=== PATIENT | male | born 1965 | race Caucasian/White ===

== ENCOUNTER 2023-04-16 01:31 | Emergency (ER) | payer BC ==
[2023-04-16] MEDS ORDERED: LORazepam 2 MG/ML SDV IVPUSH ONE ×2 (01:55→05:52)
[2023-04-16] MEDS ORDERED: Sodium Chloride 0.9% 10 ML Syringe FLUSH SCH (02:00)
[2023-04-16] MEDS ORDERED: Sodium Chloride 0.9% 10 ML Syringe FLUSH PRN (02:01)
[2023-04-16 02:20] LABS: BASOPHILS PERCENT AUTO 0.5 % (0.0-1.0); EOSINOPHILS PERCENT AUTO 0.3 % (1.0-3.0); HEMATOCRIT 29.8 % (40.0-54.0); HEMOGLOBIN 9.2 g/dL (14.0-18.0); LYMPHOCYTES PERCENT AUTO 12.1 % (20.5-50.1); MEAN CORPUSCULAR HEMOGLOBIN 28.7 pg (27.0-34.0); MEAN CORPUSCULAR HGB CONC 30.9 g/dL (33.0-35.0); MEAN CORPUSCULAR VOLUME 92.8 fL (80-100); MONOCYTES PERCENT AUTO 11.9 % (2-8); NEUTROPHILS PERCENT AUTO 75.2 % (42.2-75.2); PLATELET COUNT,PLT 200 10^3/uL (150-450); RED BLOOD CELL COUNT 3.21 10^6/uL (4.6-6.2); WHITE BLOOD CELL COUNT,WBC 6.5 10^3/uL (5.0-10.0)
[2023-04-16 02:24] LABS: CORONAVIRUS COVID-19 NAA NEGATIVE (NEGATIVE); INFLUENZA A NAA NEGATIVE (NEGATIVE); INFLUENZA B NAA NEGATIVE (NEGATIVE); RESPIRATORY SYNCYTIAL VIR NAA NEGATIVE (NEGATIVE)
[2023-04-16 02:27] LABS: APPEARANCE,URINE CLEAR (CLEAR); BILIRUBIN,URINE NEGATIVE (NEGATIVE); COLOR,URINE YELLOW (YELLOW); GLUCOSE,URINE NEGATIVE (NEGATIVE); KETONES,URINE NEGATIVE (NEGATIVE); LEUKOCYTE ESTERASE,URINE NEGATIVE (NEGATIVE); NITRITE,URINE NEGATIVE (NEGATIVE); OCCULT BLOOD,URINE NEGATIVE (NEGATIVE); PH,URINE 5.5 (5.0-9.0); PROTEIN,URINE NEGATIVE (NEGATIVE); UROBILINOGEN,URINE 0.2 mg/dL (0.2-1.0)
[2023-04-16 02:30] LABS: AMPHETAMINES,URINE NEGATIVE (NEGATIVE); BARBITURATES,URINE NEGATIVE (NEGATIVE); BENZODIAZEPINE,URINE NEGATIVE (NEGATIVE); MDMA (ECSTASY), URINE NEGATIVE (NEGATIVE); METHADONE,URINE NEGATIVE (NEGATIVE); METHAMPHETAMINES,URINE NEGATIVE (NEGATIVE); OPIATES,URINE NEGATIVE (NEGATIVE); OXYCODONE,URINE NEGATIVE (NEGATIVE); PHENCYCLIDINE,URINE NEGATIVE (NEGATIVE); TCA,URINE NEGATIVE (NEGATIVE)
[2023-04-16 02:39] LABS: ALANINE AMINOTRANSFERASE,ALT 46 U/L (16-63); ALBUMIN 3.3 g/dL (3.4-5.0); ALKALINE PHOSPHATASE 94 U/L (46-116); ANION GAP 17.7 mEq/L (7-13); ASPARTATE AMNIOTRANSFERASE,AST 88 U/L (15-37); BILIRUBIN TOTAL 0.9 mg/dL (0.2-1.0); BLOOD UREA NITROGEN,BUN 4 mg/dL (7-18); BUN/CREATININE RATIO 3.3 (No establ ref range); CALCIUM 8.4 mg/dL (8.5-10.1); CARBON DIOXIDE,CO2 26 mmol/L (21-32); CHLORIDE,CL 95 mmol/L (98-107); EST CRCL DRUG DOSING (CG) 64.92 mL/min; ETHANOL BLOOD MEDICAL 3 mg/dL (0); GLUCOSE RANDOM 103 mg/dL (70-99); LIPASE 23 U/L (16-77); MAGNESIUM 1.1 mg/dL (1.8-2.4); POTASSIUM,K 3.7 mmol/L (3.5-5.1); PROTEIN TOTAL,TP 7.1 g/dL (6.4-8.2); SODIUM,NA 135 mmol/L (136-145)
[2023-04-16 02:44] LABS: A/G RATIO 0.87; ESTIMATED GFR 70 mL/min (>=60)
[2023-04-16 02:45] LABS: C-REACTIVE PROTEIN < 0.50 ng/dL (<=0.50); LACTIC ACID 4.1 mmol/L (0.4-2.0)
[2023-04-16] MEDS ORDERED: Thiamine 100 MG in Sodium Chloride 0.9% 100 ML IV ONE (02:46)
[2023-04-16] MEDS ORDERED: Sodium Chloride 0.9% 1,000 ML IV ONE ×2 (02:46→04:11)
[2023-04-16] MEDS ORDERED: Magnesium Sulfate/Water 2 GM in Premix Bag 1 BAG IV ONE ×2 (02:47→03:00)
[2023-04-16 05:21] VITALS: BP 165/97; PULSE 85
[2023-04-16] MEDS ORDERED: LORazepam 1 MG Tab PO ONE (06:03)
== END 2023-04-16 06:11 | disposition home or self-care (01) ==
LOC: DL.ED 01:31
DX: R11.2 Nausea with vomiting, unspecified (principal); M54.42 Lumbago with sciatica, left side; F10.930 Alcohol use, unspecified with withdrawal, uncomplicated; D64.9 Anemia, unspecified; E83.42 Hypomagnesemia; R74.02 Elevation of levels of lactic acid dehydrogenase [LDH]; I10 Essential (primary) hypertension; F17.210 Nicotine dependence, cigarettes, uncomplicated; Z79.899 Other long term (current) drug therapy; Z20.822 Contact with and (suspected) exposure to COVID-19
CPT/HCPCS: 0241U; 36415; 80053; 80305-QW; 80307; 81003; 82140; 83605; 83690; 83735; 85025; 86140; 96361; 96365; 96367; 96375; 99284; 99284-25; A9270-GY; J2060; J3411; J3475; J3490; J7030

== ENCOUNTER 2023-05-08 09:37 | Emergency (ER) | payer BC ==
[2023-05-08 09:43] VITALS: BP 122/71; PULSE 116
[2023-05-08] MEDS ORDERED: Diazepam 5 MG Tab PO ONE (09:52)
== END 2023-05-08 10:45 | disposition swing bed (61) ==
LOC: DL.ED 09:37
DX: G56.22 Lesion of ulnar nerve, left upper limb (principal); R20.2 Paresthesia of skin; F17.210 Nicotine dependence, cigarettes, uncomplicated; I10 Essential (primary) hypertension; E78.00 Pure hypercholesterolemia, unspecified; Z79.899 Other long term (current) drug therapy
CPT/HCPCS: 82947; 93005; 93010; 99284; A9270-GY

== ENCOUNTER 2024-06-05 11:05 | Inpatient (IN) | payer BC ==
[2024-06-05] MEDS ORDERED: Sodium Chloride 0.9% 10 ML Syringe FLUSH PRN (11:20)
[2024-06-05 11:33] LABS: BASOPHILS PERCENT AUTO 0.1 % (0.0-1.0); EOSINOPHILS PERCENT AUTO 0.4 % (1.0-3.0); HEMATOCRIT 32.5 % (40.0-54.0); HEMOGLOBIN 11.8 g/dL (14.0-18.0); LYMPHOCYTES PERCENT AUTO 12.4 % (20.5-50.1); MEAN CORPUSCULAR HEMOGLOBIN 38.4 pg (27.0-34.0); MEAN CORPUSCULAR HGB CONC 36.3 g/dL (33.0-35.0); MEAN CORPUSCULAR VOLUME 105.9 fL (80-100); MONOCYTES PERCENT AUTO 14.8 % (2-8); NEUTROPHILS PERCENT AUTO 72.3 % (42.2-75.2); PLATELET COUNT,PLT 165 10^3/uL (150-450); RED BLOOD CELL COUNT 3.07 10^6/uL (4.6-6.2); WHITE BLOOD CELL COUNT,WBC 6.7 10^3/uL (5.0-10.0)
[2024-06-05] MEDS: MVI, Adult with Vitamin K 10 ML, Folic Acid 1 MG, Thiamine 100 MG in Lactated Ringers 1... IV ONE (11:39)
[2024-06-05 11:49] LABS: INR 1.1 (0.9-1.2); PROTHROMBIN TIME 11.6 SEC (9.0-12.0)
[2024-06-05 12:04] LABS: ALANINE AMINOTRANSFERASE,ALT 65 U/L (16-63); ALBUMIN 2.8 g/dL (3.4-5.0); ALKALINE PHOSPHATASE 123 U/L (46-116); ASPARTATE AMNIOTRANSFERASE,AST 98 U/L (15-37); BILIRUBIN TOTAL 1.5 mg/dL (0.2-1.0); BLOOD UREA NITROGEN,BUN 4 mg/dL (7-18); BUN/CREATININE RATIO 3.6 (No establ ref range); C-REACTIVE PROTEIN 0.67 ng/dL (<=0.50); CALCIUM 8.3 mg/dL (8.5-10.1); CARBON DIOXIDE,CO2 27 mmol/L (21-32); ETHANOL BLOOD MEDICAL 129 mg/dL (0); GLUCOSE RANDOM 118 mg/dL (70-99); MAGNESIUM 1.5 mg/dL (1.8-2.4); POTASSIUM,K 3.9 mmol/L (3.5-5.1); PROTEIN TOTAL,TP 6.1 g/dL (6.4-8.2); TSH ULTRASENSITIVE 3.97 uIU/mL (0.36-3.74)
[2024-06-05 12:10] LABS: ANION GAP 13.9 mEq/L (7-13); CHLORIDE,CL 84 mmol/L (98-107); SODIUM,NA 121 mmol/L (136-145)
[2024-06-05 12:12] LABS: A/G RATIO 0.85; ESTIMATED GFR 77 mL/min (>=60); LACTIC ACID 2.7 mmol/L (0.4-2.0)
[2024-06-05] MEDS: Iopamidol 612 MG/ML 100 ML Bottle IVPUSH ONE (12:15)
[2024-06-05] MEDS: Sodium Chloride 0.9% 1,000 ML IV ONE (13:14)
[2024-06-05] MEDS: Magnesium Sulf/Wat 2 GM/50 mL 2 GM in Premix Bag 1 BAG IV ONE (13:14)
[2024-06-05] MEDS: LORazepam 2 MG/ML SDV IVPUSH ONE (13:34)
[2024-06-05] MEDS: Ondansetron 4 MG/2 ML SDV IVPUSH ONE (13:34)
[2024-06-05] MEDS ORDERED: hydrALAZINE 20 MG/ML SDV IVPUSH PRN (14:35)
[2024-06-05] MEDS ORDERED: Metoprolol Tartrate 5 MG/5 ML SDV IVPUSH PRN (14:35)
[2024-06-05] MEDS ORDERED: Naloxone 2 MG/2 ML Syringe IVPUSH PRN (14:36)
[2024-06-05] MEDS ORDERED: Acetaminophen 325 MG Tab PO PRN (14:36)
[2024-06-05] MEDS ORDERED: Ondansetron 4 MG/2 ML SDV IVPUSH PRN (14:36)
[2024-06-05] MEDS ORDERED: Acetaminophen/oxyCODONE 325-5 MG Tab PO PRN (14:36)
[2024-06-05] MEDS ORDERED: Magnesium Hydroxide 400 MG/5 ML Susp 30 ML Cup PO PRN (14:36)
[2024-06-05] MEDS ORDERED: Albuterol/Ipratropium 3.0-0.5 MG/3 ML Neb Soln NEB PRN (14:36)
[2024-06-05] MEDS ORDERED: HYDROmorphone 0.5 MG/0.5 ML Syringe IVPUSH PRN (14:36)
[2024-06-05] MEDS ORDERED: Polyethylene Glycol 3350 Powder 17 GM Packet PO PRN (14:36)
[2024-06-05] MEDS ORDERED: Sennosides/Docusate Sodium 50-8.6 MG Tab PO PRN (14:36)
[2024-06-05] MEDS ORDERED: Midodrine 5 MG Tab PO PRN (15:04)
[2024-06-05] MEDS ORDERED: Flumazenil 0.1 MG/ML 5 ML MDV IVPUSH PRN (15:11)
[2024-06-05] MEDS: Thiamine 100 MG in Sodium Chloride 0.9% 100 ML IV ONE (15:32)
[2024-06-05] MEDS: Pantoprazole 40 MG Vial IVPUSH ONE (15:37)
[2024-06-05] MEDS: Nicotine 21 MG/24 Hr Patch TRDERM SCH (18:52)
[2024-06-05] MEDS: LORazepam 2 MG/ML SDV IVPUSH PRN (18:52)
[2024-06-05] MEDS: Ferrous Sulfate 325 MG Tab PO SCH (18:52)
[2024-06-05] MEDS: Sodium Chloride 1 GM Tab PO ONE (18:52)
[2024-06-05 19:07] LABS: APPEARANCE,URINE CLEAR (CLEAR); BILIRUBIN,URINE NEGATIVE (NEGATIVE); COLOR,URINE YELLOW (YELLOW); GLUCOSE,URINE NEGATIVE (NEGATIVE); KETONES,URINE NEGATIVE (NEGATIVE); LEUKOCYTE ESTERASE,URINE NEGATIVE (NEGATIVE); NITRITE,URINE NEGATIVE (NEGATIVE); OCCULT BLOOD,URINE NEGATIVE (NEGATIVE); PROTEIN,URINE NEGATIVE (NEGATIVE); UROBILINOGEN,URINE 0.2 mg/dL (0.2-1.0)
[2024-06-05 19:08] LABS: AMPHETAMINES,URINE NEGATIVE (NEGATIVE); BARBITURATES,URINE NEGATIVE (NEGATIVE); BENZODIAZEPINE,URINE NEGATIVE (NEGATIVE); MDMA (ECSTASY), URINE NEGATIVE (NEGATIVE); METHADONE,URINE NEGATIVE (NEGATIVE); METHAMPHETAMINES,URINE NEGATIVE (NEGATIVE); OPIATES,URINE NEGATIVE (NEGATIVE); OXYCODONE,URINE NEGATIVE (NEGATIVE); PHENCYCLIDINE,URINE NEGATIVE (NEGATIVE); TCA,URINE NEGATIVE (NEGATIVE)
[2024-06-05] MEDS: LORazepam 2 MG/ML SDV ONE (19:58)
[2024-06-05 20:41] LABS: ANION GAP 12.7 mEq/L (7-13); CALCIUM 8.3 mg/dL (8.5-10.1); CREATININE 1.01 mg/dL (0.70-1.30); EST CRCL DRUG DOSING (CG) 76.19 mL/min; MAGNESIUM 1.8 mg/dL (1.8-2.4); POTASSIUM,K 3.7 mmol/L (3.5-5.1)
[2024-06-05] MEDS: Sodium Chloride 0.9% 1,000 ML IV SCH (21:05)
[2024-06-06 01:14] LABS: ANION GAP 11.6 mEq/L (7-13); CALCIUM 8.1 mg/dL (8.5-10.1); CREATININE 1.11 mg/dL (0.70-1.30); EST CRCL DRUG DOSING (CG) 69.32 mL/min; POTASSIUM,K 3.6 mmol/L (3.5-5.1)
[2024-06-06] MEDS: Pantoprazole 40 MG Tab.CR PO SCH (08:05)
[2024-06-06] MEDS ORDERED: Metoprolol Succinate 50 MG Tab.ER PO SCH (09:00)
[2024-06-06 09:23] LABS: BASOPHILS PERCENT AUTO 0.2 % (0.0-1.0); EOSINOPHILS PERCENT AUTO 0.2 % (1.0-3.0); HEMATOCRIT 31.9 % (40.0-54.0); HEMOGLOBIN 11.1 g/dL (14.0-18.0); LYMPHOCYTES PERCENT AUTO 8.7 % (20.5-50.1); MEAN CORPUSCULAR HEMOGLOBIN 37.5 pg (27.0-34.0); MEAN CORPUSCULAR HGB CONC 34.8 g/dL (33.0-35.0); MEAN CORPUSCULAR VOLUME 107.8 fL (80-100); MONOCYTES PERCENT AUTO 17.8 % (2-8); NEUTROPHILS PERCENT AUTO 73.1 % (42.2-75.2); PLATELET COUNT,PLT 145 10^3/uL (150-450); RED BLOOD CELL COUNT 2.96 10^6/uL (4.6-6.2); WHITE BLOOD CELL COUNT,WBC 5.2 10^3/uL (5.0-10.0)
[2024-06-06 09:37] LABS: CALCIUM 8.1 mg/dL (8.5-10.1); CREATININE 1.08 mg/dL (0.70-1.30); EST CRCL DRUG DOSING (CG) 71.25 mL/min; MAGNESIUM 1.8 mg/dL (1.8-2.4); POTASSIUM,K 3.2 mmol/L (3.5-5.1)
[2024-06-06 09:39] LABS: ANION GAP 15.2 mEq/L (7-13)
[2024-06-06] MEDS ORDERED: LORazepam 2 MG/ML SDV ONE (09:53)
[2024-06-06 10:07] VITALS: BP 120/73; PULSE 105
[2024-06-06] MEDS ORDERED: Flumazenil 0.1 MG/ML 5 ML MDV IVPUSH PRN (10:47)
[2024-06-06] MEDS: amLODIPine 5 MG Tab PO SCH (11:29)
[2024-06-06] MEDS: Sodium Chloride 1 GM Tab PO SCH (12:08)
[2024-06-06] MEDS: cloNIDine 0.1 MG Tab PO SCH (12:08)
[2024-06-06] MEDS: Gabapentin 300 MG Cap PO ONE (12:25)
[2024-06-06] MEDS: Potassium Chloride 10 MEQ Tab.ER PO ONE (12:26)
[2024-06-06] MEDS ORDERED: Midazolam 1 MG/ML 2 ML SDV ONE (13:22)
[2024-06-06] MEDS ORDERED: Multivitamins with Iron/Calcium/Folic Acid/Minerals Tab PO SCH (21:00)
[2024-06-06] MEDS ORDERED: Thiamine 100 MG Tab PO SCH (21:00)
[2024-06-06] MEDS ORDERED: Gabapentin 300 MG Cap PO SCH (21:00)
[2024-06-06] MEDS ORDERED: Folic Acid 1 MG Tab PO SCH (21:00)
== END 2024-06-06 13:25 | DRG 426 ==
LOC: DL.ED 11:05 → UNDOADMIN 14:01 → DL.MS 14:01
PROVIDERS: ADMIT Internal Medicine; ATTEND Internal Medicine
PROC: HZ2ZZZZ Detoxification Services for Substance Abuse Treatment (ICD-10-PCS; principal; 2024-06-05)
DX: E87.1 Hypo-osmolality and hyponatremia (principal); F10.930 Alcohol use, unspecified with withdrawal, uncomplicated; I11.0 Hypertensive heart disease with heart failure; I50.9 Heart failure, unspecified; E53.8 Deficiency of other specified B group vitamins; R55 Syncope and collapse; M19.90 Unspecified osteoarthritis, unspecified site; E86.0 Dehydration; M54.9 Dorsalgia, unspecified; M70.40 Prepatellar bursitis, unspecified knee; K76.0 Fatty (change of) liver, not elsewhere classified; E78.00 Pure hypercholesterolemia, unspecified; E66.01 Morbid (severe) obesity due to excess calories; E87.8 Other disorders of electrolyte and fluid balance, not elsewhere classified; R73.9 Hyperglycemia, unspecified; E87.20 Acidosis, unspecified; E83.42 Hypomagnesemia; E80.6 Other disorders of bilirubin metabolism; E88.09 Other disorders of plasma-protein metabolism, not elsewhere classified; Y90.6 Blood alcohol level of 120-199 mg/100 ml; Z79.899 Other long term (current) drug therapy; Z72.0 Tobacco use; Z98.890 Other specified postprocedural states; Z68.37 Body mass index [BMI] 37.0-37.9, adult
CPT/HCPCS: 36415; 74177; 80048; 80053; 80305-QW; 80307; 81003; 83605; 83690; 83735; 83930; 83935; 84300; 84439; 84443; 84484; 85025; 85610; 86140; 87428-QW; 93005; 93010; 99223; 99238; 99285; A9270-GY; J2060; J2405; J2470; J3360; J3411; J3475; J3490; J7030; J7120; Q9967